=== PATIENT | female | born 1970 | race African-American/Black ===

== ENCOUNTER 2019-03-17 11:43 | Outpatient (CLI) | payer OTHER ==
[2019-03-17 13:44] LABS: #Basophils 0.1 thou/uL (0.0-0.2); #Eosinphils 0.1 thou/uL (0.0-0.7); #Lymphocytes 2.6 thou/uL (1.20-3.40); #Monocytes 0.6 thou/uL (0.11-0.59); #Neutrophils 6.1 thou/uL (1.40-6.50); %Basophils 0.6 % (0.0-1.0); %Eosinophils 0.8 % (0.0-10.0); %Lymphocytes 27.5 % (21.0-51.0); %Monocytes 6.4 % (0.0-10.0); %Neutrophils 64.7 % (42.0-75.0); Hemoglobin 12.7 g/dL (12.0-16.0); Mean Corpuscular HGB CONC 31.8 g/dL (32.0-36.0); Mean Corpuscular Hemoglobin 23.1 pg (27.0-31.0); Mean Corpuscular Volume 72.7 fL (78.0-98.0); Mean Platelet Volume 8.9 fL (7.4-10.4); Platelet Count 357 thou/uL (130-400); RBC Distribution Width 13.5 % (11.5-14.5); Red Blood Cell (RBC) Count 5.49 mill/uL (4.20-5.40); White Blood Cell (WBC) Count 9.4 thou/uL (4.8-10.8)
[2019-03-17 13:56] LABS: Anion Gap 13 mmol/L (10-20); BUN (Urea Nitrogen) 7 mg/dL (7.0-18.7); Calc. Creatinine Clearance 0 mL/min (70-130); Carbon Dioxide 26 mmol/L (22-29); Chloride 104 mmol/L (98-107); Estimated GFR-MDRD 90; Potassium 3.9 mmol/L (3.5-5.1); Sodium 139 mmol/L (136-145)
[2019-03-17 13:57] LABS: Calcium 9.3 mg/dL (7.8-10.44); Glucose 89 mg/dL (70-105)
== END 2019-03-17 11:44 | disposition home or self-care (01) ==
LOC: LABBT 11:43
PROVIDERS: ATTEND Orthopaedic Surgery Hand Surgery
DX: Z01.818 Encounter for other preprocedural examination (principal); M67.431 Ganglion, right wrist; M79.89 Other specified soft tissue disorders
CPT/HCPCS: 80048; 85025; 93005; 93010

== ENCOUNTER 2019-03-19 06:59 | Day surgery (SDC) | payer OTHER ==
[2019-03-17 12:21] VITALS: BMI 33.5
--- NOTE | 2019-03-19 07:54 | RAD ---
CHEST 2 VIEWS: HISTORY: Preoperative evaluation. FINDINGS: Heart size is normal. The lungs are clear. IMPRESSION: No acute intrathoracic disease. POS: [facility]
[2019-03-19] MEDS ORDERED: Bupivacaine PF 0.5% 30 ML VIAL ONE (11:01)
[2019-03-19] MEDS ORDERED: Betamet Acet/Betamet Na Ph 30 MG/5 ML VIAL ONE (11:02)
[2019-03-19] MEDS ORDERED: Bacitracin Zinc Ointment 30 gm TUBE ONE (11:02)
[2019-03-19] MEDS ORDERED: Fentanyl 100 MCG/2 ML VIAL ONE ×2 (11:09→12:54)
[2019-03-19] MEDS ORDERED: Midazolam HCl 2 mg/2 ml Vial ONE (11:09)
[2019-03-19] MEDS ORDERED: Ketorolac Tromethamine 30 MG/ML VIAL ONE ×2 (12:49→15:29)
[2019-03-19] MEDS ORDERED: Lidocaine 1% PF 5 ML VIAL ONE (15:29)
[2019-03-19] MEDS ORDERED: PROPOFOL 200 MG/20 ML VIAL ONE (15:29)
[2019-03-19] MEDS ORDERED: Ondansetron PF 4 MG/2 ML Vial ONE (15:29)
[2019-03-19] MEDS ORDERED: Dexamethasone 20 MG/5 ML VIAL ONE (15:29)
--- NOTE | 2019-03-20 18:48 | OP ---
DATE OF PROCEDURE: 03/19/2019 PREOPERATIVE DIAGNOSES: 1. Right ring finger ganglion with A1 kirstie tenosynovitis. 2. Right dorsal lipoma overlying a small ganglion. POSTOPERATIVE DIAGNOSES: 1. Right ring finger ganglion with A1 kirstie tenosynovitis. 2. Right dorsal lipoma overlying a small ganglion. PROCEDURES PERFORMED: 1. Right ring finger tendon ganglion excision. 2. Right ring finger A1 kirstie release. 3. From sperate incision at the wrist, right dorsal wrist ganglion excision with arthrotomy and synovectomy. 4. Right dorsal wrist lipoma. SPECIMENS SENT: 1. Ganglion from the tendon sheath. 2. Lipoma and ganglion from the dorsal wrist, also right. ESTIMATED BLOOD LOSS: 5 mL. TOURNIQUET TIME: 18 minutes. FINDINGS: Ganglion with lipoma, 3 cm with a stalk into the joint; and 5-mm ganglion at A1 kirstie with tendon sheath involvement and irritation. DESCRIPTION OF PROCEDURE: After successful general endotracheal anesthesia, the limb was prepped and draped. The patient then had time-out done appropriately. We outlined the 2 incisions, Unique type over the palmar ring finger to A1 kirstie, where the mass could be palpated and a Unique type dorsal incision over the dorsal wrist joint. Then, the limb was exsanguinated after the time-out was done appropriately, and the tourniquet was inflated to 250 mmHg pressure. We then made the Unique incision 1 cm over the mass at the palmar A1 kirstie, carried through skin and subcutaneous tissue, identified neurovascular bundle and protected it. The mass took up most of the A1 kirstie, and so we removed the mass and performed a small A1 kirstie release as well. There was mild tenosynovitis, so this was resected as well at the A1 kirstie. A2 kirstie was intact. The mass in the kirstie membrane was sent as the specimen. We then placed 1 mL of Celestone in this area of the wound, closed it with interrupted 4-0 nylon and mattress padding. We turned our attention to the dorsal wrist. We made a 2.5-cm zig-zag incision over what was approximately 2-cm mass, carried through skin and subcutaneous tissue, immediately saw a large flat sessile lipoma underneath this with a 1-cm ganglion with a stalk entering the wrist joint just dorsal to the third dorsal compartment at the scapholunate interval. We then made a small arthrotomy of 6 mm, eliminated the stalk, and left a small hole in the joint. We now deflated the tourniquet and obtained hemostasis. We closed this incision with interrupted 4-0 Monocryl deep dermal, and epidermal was closed with 4-0 nylon. Bulky dressing was applied after we gave each incision 10 mL of 0.5% Marcaine for postoperative pain relief. The patient left the operating room without evidence of anesthetic or operative complications. Job ID: [id number]
== END 2019-03-19 14:30 | disposition home or self-care (01) ==
LOC: SDC 06:59
PROVIDERS: ATTEND Orthopaedic Surgery Hand Surgery
PROC: 0LB70ZZ Excision of Right Hand Tendon, Open Approach (ICD-10-PCS; principal; 2019-03-19)
PROC: 0LB50ZZ Excision of Right Lower Arm and Wrist Tendon, Open Approach (ICD-10-PCS; principal; 2019-03-19)
DX: D17.79 Benign lipomatous neoplasm of other sites (principal); M67.431 Ganglion, right wrist; M67.441 Ganglion, right hand; M65.841 Other synovitis and tenosynovitis, right hand
CPT/HCPCS: 71046; 88304; J0690; J0702; J1100; J1885; J2001; J2250; J2405; J2704; J3010; S0020

== ENCOUNTER 2022-05-16 11:42 | Outpatient (CLI) | payer BC | END 2022-05-16 11:43 | disposition home or self-care (01) | LOC: BICRAD 11:42 | PROVIDERS: ATTEND Registered Nurse Community Health | DX: M25.512 Pain in left shoulder (principal) ==

== ENCOUNTER 2022-07-12 10:44 | Outpatient (CLI) | payer BC | END 2022-07-12 10:45 | disposition home or self-care (01) | LOC: MRI 10:44 | PROVIDERS: ATTEND Orthopaedic Surgery | DX: M54.12 Radiculopathy, cervical region (principal); M48.02 Spinal stenosis, cervical region | CPT/HCPCS: 72141 ==

== ENCOUNTER 2022-08-13 10:45 | Outpatient (CLI) | payer BC | END 2022-08-13 10:46 | disposition home or self-care (01) | LOC: LABBT 10:45 | PROVIDERS: ATTEND Surgery | DX: Z01.810 Encounter for preprocedural cardiovascular examination (principal); M50.10 Cervical disc disorder with radiculopathy, unspecified cervical region; M48.02 Spinal stenosis, cervical region | CPT/HCPCS: 93005; 93010 ==

== ENCOUNTER 2022-10-01 08:51 | Outpatient (CLI) | payer BC | END 2022-10-01 08:52 | disposition home or self-care (01) | LOC: BICRAD 08:51 | PROVIDERS: ATTEND Family Medicine | DX: M47.22 Other spondylosis with radiculopathy, cervical region (principal); M48.02 Spinal stenosis, cervical region; Z98.890 Other specified postprocedural states | CPT/HCPCS: 72040 ==